=== PATIENT | female | born 1950 | race Caucasian/White ===

== ENCOUNTER 2022-01-29 08:36 | Day surgery (SDC) | payer OTHER ==
[2022-01-27 14:16] VITALS: BMI 19.6
[2022-01-29 10:24] VITALS: TEMP 97.8
[2022-01-29 10:46] VITALS: BP 108/62; PULSE 64
== END 2022-01-29 11:01 | disposition home or self-care (01) ==
LOC: FASU-ENDO 08:36
PROVIDERS: ATTEND Internal Medicine Gastroenterology
PROC: 0DJD8ZZ Inspection of Lower Intestinal Tract, Via Natural or Artificial Opening Endoscopic (ICD-10-PCS; principal; 2022-01-29 09:50)
DX: Z12.11 Encounter for screening for malignant neoplasm of colon (principal); Z83.71 Family history of colonic polyps